=== PATIENT | female | born 2000 | race Caucasian/White ===

== ENCOUNTER 2023-08-26 02:32 | Emergency (ER) | payer OTHER, SELFPAY ==
[2023-08-26 02:38] VITALS: BP 145/80; PULSE 120; RESP 18; TEMP 36.8; O2SAT 100; BMI 40.2
--- NOTE | 2023-08-26 02:56 | CT_ITS ---
The [address] [address] Patient Name: ANGELY WARD MRN: [id number] date: 2000 Sex: F Assigned Patient Location: ER Current Patient Location: ER Accession/Order Number: [id number] Exam Date: 08/26/2023 03:24 Report Date: 08/26/2023 03:46 At the request of: TYLER BUSTAMANTE Procedure: CT abdomen pelvis wo con EXAMINATION: CT abdomen pelvis wo con HISTORY: L sided abd pain COMPARISON: None. TECHNIQUE: CT abdomen pelvis without contrast. Dose reduction techniques were achieved by using: automated exposure control and/or adjustment of mA and /or kV according to patient size and/or use of iterative reconstruction technique. FINDINGS: No airspace consolidation in the included lung bases. CT ABDOMEN: No lesions in the unenhanced liver. Fatty infiltration of the liver. No lesions in the spleen, gallbladder, pancreas, adrenal glands. No hydronephrosis or hydroureter. CT PELVIS: Normal appendix. Moderate stool in the colon. No abnormal small bowel distention. Uterus is identified. Urinary bladder is remarkable. No free fluid or free air. No compression fracture lumbar spine. CT/CT abdomen pelvis wo con IMPRESSION: 1. No renal calculi or evidence for urinary tract obstruction. 2. Negative for appendicitis. Negative for small bowel obstruction. No appreciable abnormal inflammation in the abdomen and pelvis on noncontrast study. Electronically authenticated by: SHARRON MELÉNDEZ Date: 08/26/2023 03:46
--- NOTE | 2023-08-26 02:59 | ED.ABDPAIN1 ---
HPI - Abdominal Pain General Chief Complaint: Abdominal Pain Stated Complaint: abd pain Time Seen by Provider: 08/26/23 02:45 Source: patient Mode of arrival: walk-in Limitations: no limitations History of Present Illness HPI narrative: Sudden left upper abdominal pain around 9pm. Pain initially radiated into the left flank but does not now. Pain rated severe 9/10 despite taking ibuprofen earlier. No nausea or vomiting. No fever or chills. No urinary symptoms. No prior history of similar. No abdominal surgeries. Patient states that she is on her menstrual period now. Related Data Home Medications Medication Instructions Recorded Confirmed No Known Home Medications 08/26/23 08/26/23 Previous Rx's Medication Instructions Recorded hyoscyamine sulfate 0.125 mg 0.125 mg PO Q6H PRN abdominal pain 08/26/23 sublingual tablet (Levsin/SL) #20 tabs ondansetron 4 mg disintegrating 4 mg PO Q6H PRN nausea and 08/26/23 tablet vomiting #14 tabs Allergies Allergy/AdvReac Type Severity Reaction Status Date / Time No Known Drug Allergies Allergy Verified 08/26/23 02:43 PFSH PFSH Social History Smoking status: Never smoker Exam Narrative Exam Narrative: Nurses notes and vital signs reviewed and patient is not hypoxic. afebrile General: Well-appearing and in no apparent distress. Skin: Warm, dry, no pallor noted. No rash to abdomen or flank. Head: Normocephalic, atraumatic. Neck: Supple, non-tender. Eye: Pupils are equal, round and EOMI. No scleral icterus. Ears, Nose, Mouth, and Throat: Oral mucosa is moist Cardiovascular: Regular Rate and Rhythm without murmur, gallop or rub. Respiratory: No accessory muscle use or respiratory distress. Lungs are clear to auscultation, no wheezing, rales or rhonchi Back: No midline thoracic or lumbar vertebral tenderness. No CVA tenderness Musculoskeletal: normal ROM, no calf or popliteal tenderness, no lower extremity edema/swelling GI: Abdomen is soft, non-distended. Normal bowel sounds. Obese - unable to palpate masses. LUQ tenderness to palpation. No rebound, guarding, or rigidity noted. Neurological: A&O x4. No cranial nerve dysfunction observed. No truncal ataxia. Moves all extremities. Sensation intact. Psychiatric: Cooperative and interactive. Normal mood and affect. Constitutional Vital Signs, click to edit/add: Last Vital Signs Temp 98.2 F 08/26/23 02:38 Pulse 120 H 08/26/23 02:38 Resp 18 08/26/23 02:38 BP 145/80 H 08/26/23 02:38 Pulse Ox 100 08/26/23 02:38 O2 Del Method Room Air 08/26/23 02:38 Course Vital Signs Vital signs: Vital Signs Temperature 98.2 F 08/26/23 02:38 Pulse Rate 120 H 08/26/23 02:38 Respiratory Rate 18 08/26/23 02:38 Blood Pressure 145/80 H 08/26/23 02:38 Pulse Oximetry 100 08/26/23 02:38 Oxygen Delivery Method Room Air 08/26/23 02:38 Temperature 98.2 F 08/26/23 02:38 Pulse Rate 120 H 08/26/23 02:38 Respiratory Rate 18 08/26/23 02:38 Blood Pressure 145/80 H 08/26/23 02:38 Pulse Oximetry 100 08/26/23 02:38 Oxygen Delivery Method Room Air 08/26/23 02:38 MDM - Abdominal Pain MDM Narrative Medical decision making narrative: Peripheral IV established and blood drawn and sent for testing. Patient was sent for CT scanning of the abdomen pelvis without contrast. Normal WBC and CBC. Mild decrease in K and increase in AST and ALT. Preg neg. UA negative. CT = moderate stool in colon, no other findings to account for the pain, per radiologist. Patient felt better after ED treatment. Patient informed of results. Discharged home with prescriptions for zofran and Levsin. Discussed OTC laxative use. Differential Diagnosis Differential diagnosis: Likely abdominal pain, acute appendicitis, calculus of kidney, constipation, diverticulitis, endometriosis, pancreatitis and small bowel obstruction Lab Data Attestation: I reviewed the patient's lab results. Labs: Lab Results 08/26/23 Range/Units 03:05 WBC 7.4 (4.0-11.0) 10^3/uL RBC 4.73 (4.20-5.40) 10^6/uL Hgb 14.3 (12.0-16.0) g/dL Hct 43.6 (36.0-48.0) % MCV 92.2 (81.0-99.0) fL MCH 30.2 (26.7-34.0) pg MCHC 32.8 (29.9-35.2) g/dL RDW 12.3 (11.0-15.0) % Plt Count 266 (150-450) 10^3/uL MPV 11.5 (9.5-13.5) fL Neut % (Auto) 52.1 (43.0-75.0) % Lymph % (Auto) 35.5 (20.5-60.0) % [place] % (Auto) 8.4 (1.7-12.0) % Eos % (Auto) 2.6 (0.9-7.0) % Baso % (Auto) 0.3 (0.2-2.0) % Neut # (Auto) 3.9 (1.4-6.5) 10^3/uL Lymph # (Auto) 2.6 (1.2-3.8) 10^3/uL [place] # (Auto) 0.6 (0.3-0.8) 10^3/uL Eos # (Auto) 0.2 (0.0-0.7) 10^3/uL Baso # (Auto) 0.0 (0.0-0.1) 10^3/uL Abs Immat Gran (auto) 0.08 H (0.00-0.03) 10^3/uL Imm/Tot Granulo (auto) 1.1 H (0.0-0.5) % Sodium 141 (136-145) mmol/L Potassium 3.1 L (3.5-5.1) mmol/L Chloride 103 (98-107) mmol/L Carbon Dioxide 26.1 (21.0-32.0) mmol/L Anion Gap 15.0 BUN 9.0 (7.0-18.0) mg/dL Creatinine 0.93 (0.55-1.02) mg/dL Est GFR ( Amer) >60 (>=60) Est GFR (Non-Af Amer) >60 (>=60) BUN/Creatinine Ratio 9.7 Glucose 113 H (74-106) mg/dL Lactate 1.8 (0.4-2.0) mmol/L Calcium 9.2 (8.5-10.1) mg/dL Total Bilirubin 0.4 (0.2-1.0) mg/dL AST 97 H (15-37) U/L ALT 106 H (14-59) U/L Alkaline Phosphatase 92 (46-116) U/L Total Protein 7.5 (6.4-8.2) g/dL Albumin 4.1 (3.4-5.0) g/dL Globulin 3.4 g/dL Albumin/Globulin Ratio 1.2 Lipase 31.0 (16.0-77.0) U/L Serum HCG, Qual Negative (NEGATIVE) Urine Color Lt. yellow (YELLOW) Urine Clarity Clear (CLEAR) Urine pH 6.5 (5.0-9.0) Ur Specific [place] 1.020 (1.005-1.025) Urine Protein Negative (NEG/TRACE) mg/dL Urine Glucose (UA) Negative (NEGATIVE) mg/dL Urine Ketones Negative (NEGATIVE) mg/dL Urine Occult Blood Small A (NEGATIVE) Urine Nitrite Negative (NEGATIVE) Urine Bilirubin Negative (NEGATIVE) Urine Urobilinogen 0.2 (0.2-1.0) EU/dL Ur Leukocyte Esterase Negative (NEGATIVE) Urine RBC 0-2 (0-2) #/HPF Urine WBC None seen (NONE SEEN) #/HPF Ur Squamous Epith Cells Rare (NONE/RARE) #/LPF Urine Crystals None seen (None Seen) #/HPF Urine Bacteria None seen (NONE SEEN) #/HPF Urine Casts None seen (NONE SEEN) #/LPF Urine Mucus None seen (NONE SEEN) Imaging Data CT scan - abdomen: My impression: moderate stool in colon Radiologist's impression: ITS Impressions Abdomen/Pelvis CT 08/26/23 02:56 IMPRESSION: 1. No renal calculi or evidence for urinary tract obstruction. 2. Negative for appendicitis. Negative for small bowel obstruction. No appreciable abnormal inflammation in the abdomen and pelvis on noncontrast study. Electronically authenticated by: SHARRON MELÉNEDZ Date: 08/26/2023 03:46 Discharge Plan Discharge Chief Complaint: Abdominal Pain Clinical Impression: Abdominal pain, Constipation Patient Disposition: Home, Self-Care Time of Disposition Decision: 04:05 Prescriptions / Home Meds: New hyoscyamine sulfate [Levsin/SL] 0.125 mg tablet, sublingual 0.125 mg PO Q6H PRN (Reason: abdominal pain) Qty: 20 0RF ondansetron 4 mg tablet,disintegrating 4 mg PO Q6H PRN (Reason: nausea and vomiting) Qty: 14 0RF No Action No Known Home Medications Instructions: Constipation (ED), Abdominal Pain (ED) Stand Alone Forms: Portal Instructions Referrals: ROX TURPIN [Primary Care Provider] - 1 week
[2023-08-26] MEDS: ONDANSETRON PF 4 MG/2 ML VIAL IV (03:13)
[2023-08-26] MEDS: 0.9 % SODIUM CHLORIDE 1,000 ML 100 ML IV (03:13)
[2023-08-26] MEDS: KETOROLAC TROMETHAMINE 30 MG/ML VIAL IVP (03:13)
[2023-08-26 03:24] LABS: Bilirubin Urine NEGATIVE (NEGATIVE); Blood Urine SMALL (NEGATIVE); Clarity Urine CLEAR (CLEAR); Color Urine LT. YELLOW (YELLOW); Glucose Urine UA NEGATIVE (NEGATIVE); Ketones Urine NEGATIVE (NEGATIVE); Leukocyte Esterase Urine NEGATIVE (NEGATIVE); Nitrite Urine NEGATIVE (NEGATIVE); Protein Urine NEGATIVE (NEG/TRACE); Urobilinogen Urine 0.2 EU/dL (0.2-1.0); pH Urine 6.5 (5.0-9.0)
[2023-08-26 03:25] LABS: Urine Microscopic Indicated YES
[2023-08-26 03:30] LABS: Bacteria Urine NONE SEEN #/HPF (NONE SEEN); Cast Seen? NONE SEEN #/LPF (NONE SEEN); Crystals Seen? None Seen #/HPF (None Seen); Mucus Urine NONE SEEN (NONE SEEN); RBC Urine 0-2 #/HPF (0-2); Squamous Epithelial Cell Urine RARE #/LPF (NONE/RARE); WBC Urine NONE SEEN #/HPF (NONE SEEN)
[2023-08-26 03:35] LABS: Basophils Percent Auto 0.3 % (0.2-2.0); Eosinophils Absolute Auto 0.2 10^3/uL (0.0-0.7); Eosinophils Percent Auto 2.6 % (0.9-7.0); Hematocrit 43.6 % (36.0-48.0); Hemoglobin 14.3 g/dL (12.0-16.0); Immature Granulocytes Abs Auto 0.08 10^3/uL (0.00-0.03); Immature Granulocytes Pct Auto 1.1 % (0.0-0.5); Lymphocytes Absolute Auto 2.6 10^3/uL (1.2-3.8); Lymphocytes Percent Auto 35.5 % (20.5-60.0); Mean Corpuscular HGB Conc 32.8 g/dL (29.9-35.2); Mean Corpuscular Hemoglobin 30.2 pg (26.7-34.0); Mean Corpuscular Volume 92.2 fL (81.0-99.0); Mean Platelet Volume 11.5 fL (9.5-13.5); Monocytes Absolute Auto 0.6 10^3/uL (0.3-0.8); Monocytes Percent Auto 8.4 % (1.7-12.0); Neutrophils Absolute Auto 3.9 10^3/uL (1.4-6.5); Neutrophils Percent Auto 52.1 % (43.0-75.0); Platelet Count 266 10^3/uL (150-450); Red Blood Count 4.73 10^6/uL (4.20-5.40); Red Cell Distribution Width 12.3 % (11.0-15.0); White Blood Count 7.4 10^3/uL (4.0-11.0)
[2023-08-26 03:36] LABS: Alanine Aminotransferase 106 U/L (14-59); Albumin Globulin Ratio 1.2; Albumin Level 4.1 g/dL (3.4-5.0); Alkaline Phosphatase 92 U/L (46-116); Aspartate Amino Transferase 97 U/L (15-37); BUN Creatinine Ratio 9.7; Bilirubin Total 0.4 mg/dL (0.2-1.0); Calcium 9.2 mg/dL (8.5-10.1); Carbon Dioxide 26.1 mmol/L (21.0-32.0); Chloride 103 mmol/L (98-107); Estimated GFR (African America >60 (>=60); Estimated GFR (Non-African Ame >60 (>=60); Globulin 3.4 g/dL; Glucose 113 mg/dL (74-106); Potassium 3.1 mmol/L (3.5-5.1); Sodium 141 mmol/L (136-145); Total Protein 7.5 g/dL (6.4-8.2)
[2023-08-26 03:39] LABS: Lactate/Lactic Acid 1.8 mmol/L (0.4-2.0)
[2023-08-26 03:40] LABS: HCG Qualitative NEGATIVE (NEGATIVE)
[2023-08-26 04:29] VITALS: PULSE 87
--- NOTE | 2023-08-26 04:30 | PC.NURSE ---
Discussed discharge paperwork with pt and mom. All questions answered. Discussed different OTC meds that can help with her constipation. Scripts sent to pharmacy. Pt ambulated off unit in stable condition.
== END 2023-08-26 04:31 | disposition home or self-care (01) ==
PROVIDERS: Emergency Provider Emergency Medicine; PCP Family Medicine
DX: K59.00 Constipation, unspecified (principal); R10.9 Unspecified abdominal pain
CPT/HCPCS: 36415; 74176; 80053; 81001; 83605; 83690; 84703; 85025; 96374; 96375; 99284; J1885; J2405